=== PATIENT | male | born 1955 | race African-American/Black ===

== ENCOUNTER 2018-12-22 04:29 | Emergency (ER) | payer OTHER ==
[~2018-12-22] VITALS: Ht 182.9 cm; Wt 124.7 kg
[2018-12-22 04:40] VITALS: BP 121/78
--- NOTE | 2018-12-22 04:40 | NUR ---
ED Nurse Note: PATIENT AMBULATED TO ED C/O SORE THROAT AND VOMITTING X0200. PATIENT REPORTS THROAT FEELS "SCRATCHY AND IS MAKING HIM VOMMIT" DENIES SOB OR DIFFICULTY BREATHING. AOR. NAD. VSS ACCOMPANIED BY FAMILY MEMBER
[2018-12-22] MEDS ORDERED: ZITHROMAX250 MG ORAL (04:55)
[2018-12-22] MEDS ORDERED: PREDNISONE20 MG ORAL (04:55)
--- NOTE | 2018-12-22 04:56 | Emergency Room Report ---
History of Present Illness General Chief Complaint: Sore Throat Source: Patient Present Illness [facility] This is a 63-year-old male with no past medical history he presents with complaint of sore throat. Onset for the last 2 to 3 days. It was mild initially and just described as scratchy. But got worse tonight. He said he felt like there is something stuck back of his throat. He felt nauseous. Worse with swallowing. Better with rest. No fever chills. Does have some hoarseness. Minimal pain. Denies any other complaint. Allergies: Coded Allergies: No Known Allergies (Unverified , 12/22/18) Patient History Past Medical History: none, see triage record, old chart reviewed Past Surgical History: none Pertinent Family History: none Social History: Denies: smoking Immunizations: other Reviewed Nursing Documentation: PMH: Agreed; PSxH: Agreed Nursing Documentation-PMH Past Medical History: No Stated History Review of Systems Eye: Denies: eye pain, blurred vision ENT: Denies: ear pain, nose congestion, throat swelling Respiratory: Denies: cough, shortness of breath Cardiovascular: Denies: chest pain, palpitations Gastrointestinal: Denies: abdominal pain, diarrhea, nausea, vomiting Musculoskeletal: Denies: back pain, joint pain Skin: Denies: rash Neurological: Denies: headache, numbness Endocrine: Denies: increased thirst, increased urine Hematologic/Lymphatic: Denies: easy bruising All Other Systems: negative except mentioned in HPI Physical Exam Vital Signs Date Time Temp Pulse Resp B/P (MAP) Pulse Ox O2 Delivery O2 Flow Rate FiO2 12/22/18 04:35 98.6 74 26 121/78 (92) 96 Room Air Vitals normal Sp02 EP Interpretation: reviewed, normal General Appearance: well appearing, no apparent distress, alert Head: normocephalic, atraumatic Eyes: bilateral eye PERRL, bilateral eye EOMI ENT: hearing grossly normal, uvula midline, pharyngeal erythema, other - Uvula is edematous and swollen Neck: full range of motion, supple, no meningismus Respiratory: chest non-tender, lungs clear, normal breath sounds Cardiovascular #1: regular rate, rhythm, no murmur Gastrointestinal: normal bowel sounds, non tender, no mass, no organomegaly, no bruit, non-distended Musculoskeletal: back normal, gait/station normal, normal range of motion Psychiatric: mood/affect normal Medical Decision Making Diagnostic Impression: Primary Impression: Uvulitis ER Course Patient with a pharyngitis and uvulitis. Most likely viral. Because of the significant of his symptoms, will put on antibiotics. No evidence of peritonsillar abscess or Nazario angina. No evidence of retropharyngeal abscess. No evidence of allergies. Last Vital Signs Date Time Temp Pulse Resp B/P (MAP) Pulse Ox O2 Delivery O2 Flow Rate FiO2 12/22/18 04:35 98.6 74 26 121/78 (92) 96 Room Air Status: unchanged Disposition: HOME, SELF-CARE Condition: Stable Scripts Prednisone* (PREDNISONE*) 20 Mg Tablet 40 MG ORAL DAILY, #8 TAB Prov: Barron Linares MD 12/22/18 Azithromycin* (ZITHROMAX*) 250 Mg Tablet 250 MG ORAL DAILY, #6 TAB 0 Refills Take two tables once daily for 1 day, then one tablet once daily for 4 days. Prov: Barron Linares MD 12/22/18 Additional Instructions: Increase fluids. Follow-up with your doctor in 7 days for recheck. Return if symptoms worsen. Barron Linares MD Dec 22, 2018 04:56
[2018-12-22 05:00] VITALS: BP 121/78
--- NOTE | 2018-12-22 05:00 | NUR ---
ER DISCHARGE NOTE: Patient is cleared to be discharged per ERMD, pt is aox4, on room air, with stable vital signs. accompanied by family member. pt was given dc and prescription instructions, pt was able to verbalize understanding, pt id band removed. pt is able to ambulate with steady gait. pt took all belongings.
== END 2018-12-22 05:00 | disposition home or self-care (01) ==
LOC: EMR 04:53
DX: K12.2 Cellulitis and abscess of mouth (principal)
CPT/HCPCS: 99282; J7512